=== PATIENT | male | born 1940 | race Two or more races ===

== ENCOUNTER 2018-10-17 12:10 | Inpatient (IN) | payer OTHER, MEDICAID ==
[~2018-10-17] VITALS: Ht 165.1 cm; Wt 70.8 kg
[2018-10-17 13:12] LABS: BASOPHILS % 0.6 % (0.0-2.0); EOSINOPHILS % 1.6 % (0.0-5.0); HEMOGLOBIN. 14.4 g/dL (14.0-18.0); LYMPHOCYTES % 28.9 % (20.0-50.0); MEAN CORPUSCULAR HEMOGLOBIN 31.9 pg (28.0-32.0); MEAN CORPUSCULAR VOLUME 93.1 fL (80.0-94.0); MEAN PLATELET VOLUME 7.6 fl (7.4-10.4); MONOCYTES % 10.9 % (2.0-8.0); PLATELET 200 x1000/uL (130-400); RED BLOOD CELL COUNT 4.52 mill/uL (4.7-6.1); RED CELL DISTRIBUTION WIDTH 13.9 % (11.6-14.6)
[2018-10-17 13:17] LABS: CHLORIDE 107 mEq/L (98-107)
[2018-10-17 13:22] LABS: PARTIAL THROMBOPLASTIN TIME 27.4 sec (23.4-31.0); PROTHROMBIN TIME 10.4 sec (9.1-11.1)
[2018-10-17 13:23] LABS: ETHANOL BLOOD < 10 mg/dL
[2018-10-17 13:27] LABS: LDL CHOLESTEROL 126 mg/dL (5-100)
[2018-10-17 13:28] LABS: CREATINE KINASE 92 IU/L (39-308)
[2018-10-17] MEDS ORDERED: ACETAMINOPHEN 325MG TABLET PO PRN (15:00)
[2018-10-17] MEDS ORDERED: LORAZEPAM 0.5MG TABLET PO PRN (15:00)
[2018-10-17] MEDS ORDERED: ONDANSETRON HCL 4MG/2ML INJ IV PRN (15:00)
[2018-10-17] MEDS ORDERED: GUAIFENESIN 200MG/10ML SUGAR FREE UDC PO PRN (15:00)
[2018-10-17] MEDS ORDERED: DOCUSATE SODIUM 100MG CAPSULE PO PRN (15:00)
[2018-10-17] MEDS ORDERED: ACETAMINOPHEN 650MG SUPP PR PRN (15:00)
[2018-10-17] MEDS ORDERED: CLONIDINE 0.1MG TABLET PO PRN (15:00)
[2018-10-17] MEDS ORDERED: DIPHENHYDRAMINE 50MG/ML VIAL IV PRN (15:00)
[2018-10-17] MEDS ORDERED: IPRATROPIUM/ALBUTEROL 0.5-3(2.5)MG/3ML NEB INH PRN (15:00)
[2018-10-17] MEDS ORDERED: HYDROCODONE/ACETAMINOPHEN 5/325MG TABLET PO PRN (15:00)
[2018-10-17] MEDS ORDERED: MAGNESIUM/ALUMINUM HYDROXIDE/SIMETHICONE 30ML UDC PO PRN (15:00)
[2018-10-17] MEDS ORDERED: NA PHOS,M-B/NA PHOS,DI-BA ENEMA 118ML PR PRN (21:00)
[2018-10-17 21:35] VITALS: BP 129/66
[2018-10-17] MEDS ORDERED: ATORVASTATIN CALCIUM 10MG TABLET PO SCH (22:00)
[2018-10-17] MEDS ORDERED: SIMV10TA6 MT (22:52)
[2018-10-17] MEDS ORDERED: CLOP75TA33 MT (22:52)
[2018-10-17] MEDS ORDERED: METO-539 MT (22:52)
[2018-10-17] MEDS ORDERED: ASPI-1159 MT (22:52)
[2018-10-18] VITALS: BP_SYST 104; BP_SYST 110; BP_SYST 119; BP_DIAS 55; BP_DIAS 63; BP_DIAS 76
[2018-10-18 00:08] LABS: CREATINE KINASE MB FRACTION 2.2 ng/mL (0.5-3.6)
[2018-10-18 04:00] VITALS: BP_SYST 117; BP_DIAS 63; BP_DIAS 65
[2018-10-18 06:58] LABS: BASOPHILS % 0.9 % (0.0-2.0); EOSINOPHILS % 2.5 % (0.0-5.0); HEMATOCRIT. 39.8 % (42.0-52.0); HEMOGLOBIN. 13.8 g/dL (14.0-18.0); LYMPHOCYTES % 30.1 % (20.0-50.0); MEAN CORPUSCULAR HEMOGLOBIN 32.1 pg (28.0-32.0); MEAN CORPUSCULAR VOLUME 92.4 fL (80.0-94.0); MEAN PLATELET VOLUME 7.8 fl (7.4-10.4); MONOCYTES % 11.7 % (2.0-8.0); NEUTROPHILS % 54.8 % (40.0-76.0); PLATELET 183 x1000/uL (130-400); RED BLOOD CELL COUNT 4.31 mill/uL (4.7-6.1); RED CELL DISTRIBUTION WIDTH 13.8 % (11.6-14.6)
[2018-10-18 07:14] LABS: CHLORIDE 107 mEq/L (98-107)
[2018-10-18 07:22] LABS: CREATINE KINASE MB FRACTION 1.9 ng/mL (0.5-3.6)
[2018-10-18 07:24] LABS: CREATINE KINASE 70 IU/L (39-308); HDL CHOLESTEROL 29 mg/dL (40-59); T4 FREE 0.94 ng/dL (0.76-1.46)
[2018-10-18 07:25] LABS: LDL CHOLESTEROL 122 mg/dL (5-100)
[2018-10-18 08:00] VITALS: BP_SYST 119; BP_SYST 125; BP_SYST 131; BP_DIAS 60; BP_DIAS 65; BP_DIAS 68
[2018-10-18] MEDS ORDERED: AMLODIPINE 5MG TABLET PO SCH (09:00)
[2018-10-18] MEDS ORDERED: CLOPIDOGREL 75MG TABLET PO SCH (09:00)
[2018-10-18 11:08] LABS: CLARITY URINE CLEAR (CLEAR); COLOR URINE YELLOW (YELLOW); KETONES URINE NEGATIVE (NEGATIVE); LEUKOCYTE ESTERASE URINE NEGATIVE (NEGATIVE); NITRITE URINE NEGATIVE (NEGATIVE); OCCULT BLOOD URINE NEGATIVE (NEGATIVE); PH URINE 6.5 (4.5-8.0); PROTEIN URINE NEGATIVE (NEGATIVE); SPECIFIC GRAVITY URINE 1.016 (1.005-1.030); UROBILINOGEN URINE 0.2 E.U./dL (0.2-1.0)
[2018-10-18 12:08] LABS: *AMPHETAMINES SCREEN URINE NEGATIVE (NEGATIVE); *BARBITURATES SCREEN URINE NEGATIVE (NEGATIVE); *BENZODIAZEPINES SCREEN URINE NEGATIVE (NEGATIVE); *COCAINE SCREEN URINE NEGATIVE (NEGATIVE)
[2018-10-18 12:09] LABS: CANNABINOID URINE SCREEN NEGATIVE (NEGATIVE); METHADONE URINE SCREEN NEGATIVE (NEGATIVE); OPIATES URINE SCREEN NEGATIVE (NEGATIVE); PHENCYCLIDINE URINE SCREEN NEGATIVE (NEGATIVE)
[2018-10-18 15:46] VITALS: BP_SYST 108; BP_SYST 144; BP_DIAS 64; BP_DIAS 73
[2018-10-18 16:57] VITALS: BP 144/73
[2018-10-18] MEDS ORDERED: ATORVASTATIN CALCIUM 40MG TABLET PO SCH (21:00)
[2018-10-18] MEDS ORDERED: LEVETIRACETAM 500MG TABLET PO SCH (21:00)
== END 2018-10-18 17:50 | disposition home or self-care (01) | DRG 100 ==
LOC: ER 12:10 → 6WST 13:32 → EDBEDREQ 13:42 → SUPCPDRO 14:20 → ENRESERV 20:12
PROVIDERS: ADMIT Internal Medicine; ATTEND Internal Medicine
DX: G40.89 Other seizures (principal); I50.33 Acute on chronic diastolic (congestive) heart failure; G45.9 Transient cerebral ischemic attack, unspecified; E78.00 Pure hypercholesterolemia, unspecified; I73.9 Peripheral vascular disease, unspecified; E78.5 Hyperlipidemia, unspecified; R73.9 Hyperglycemia, unspecified; I11.0 Hypertensive heart disease with heart failure; I25.2 Old myocardial infarction; Z86.73 Personal history of transient ischemic attack (TIA), and cerebral infarction without residual deficits
CPT/HCPCS: 36415; 70551; 71045; 80061; 80305; 82550; 82553; 82962; 83036; 83721; 83735; 83880; 84439; 84443; 84484; 93005; 93306; 93880; 93970; 97162; 99291; G0482

== ENCOUNTER 2021-05-15 18:51 | Emergency (ER) | payer MEDICAID, OTHER ==
[~2021-05-15] VITALS: Ht 162.6 cm; Wt 84.0 kg
[~2021-05-15 18:51] MED LIST: ASPI-1497 MT; CLOP75TA33 MT; METO-539 MT; SIMV10TA97 MT
[2021-05-15] MEDS ORDERED: ACETAMINOPHEN 325MG TABLET PO STA (23:31)
[2021-05-15] MEDS ORDERED: SODIUM CHLORIDE 0.9% 1,000 ML IV ONE (23:45)
[2021-05-15 23:54] LABS: BASOPHILS % 0.4 % (0.0-2.0); EOSINOPHILS % 0.9 % (0.0-5.0); HEMATOCRIT. 41.5 % (42.0-52.0); HEMOGLOBIN. 13.9 g/dL (14.0-18.0); LYMPHOCYTES % 15.7 % (20.0-50.0); MEAN CORPUSCULAR HEMOGLOBIN 31.5 pg (28.0-32.0); MEAN CORPUSCULAR VOLUME 93.9 fL (80.0-94.0); MEAN PLATELET VOLUME 7.6 fl (7.4-10.4); MONOCYTES % 10.3 % (2.0-8.0); NEUTROPHILS % 72.7 % (40.0-76.0); PLATELET 189 x1000/uL (130-400); RED BLOOD CELL COUNT 4.42 mill/uL (4.7-6.1); RED CELL DISTRIBUTION WIDTH 13.7 % (11.6-14.6)
[2021-05-15 23:59] LABS: CHLORIDE 107 mEq/L (98-107)
[2021-05-16 00:22] LABS: CLARITY URINE CLOUDY (CLEAR); COLOR URINE YELLOW (YELLOW); KETONES URINE NEGATIVE (NEGATIVE); LEUKOCYTE ESTERASE URINE TRACE (NEGATIVE); NITRITE URINE NEGATIVE (NEGATIVE); OCCULT BLOOD URINE 3+ (NEGATIVE); PROTEIN URINE TRACE (NEGATIVE); SPECIFIC GRAVITY URINE 1.026 (1.005-1.030); UROBILINOGEN URINE 0.2 E.U./dL (0.2-1.0)
[2021-05-16 06:07] VITALS: BP 118/59
== END 2021-05-16 06:11 | disposition left against medical advice (07) ==
LOC: ER 18:51
DX: N20.0 Calculus of kidney (principal); I25.2 Old myocardial infarction; N13.30 Unspecified hydronephrosis; Z86.59 Personal history of other mental and behavioral disorders
CPT/HCPCS: 36415; 74176; 80053; 81003; 83690; 85025; 99285; J7030